=== PATIENT | male | born 1985 | race Caucasian/White ===

== ENCOUNTER 2018-01-13 21:37 | Emergency (ER) | payer OTHER ==
[~2018-01-13] VITALS: Ht 185.4 cm; Wt 68.0 kg
[~2018-01-13 21:37] MED LIST: ERYTHROMYCIN3.5 GM OD
[2018-01-14] MEDS ORDERED: ANUSOL-HC25 MG PR (01:26)
== END 2018-01-14 01:52 | disposition home or self-care (01) ==
LOC: ED 21:37
DX: K52.9 Noninfective gastroenteritis and colitis, unspecified (principal); F32.9 Major depressive disorder, single episode, unspecified; F17.200 Nicotine dependence, unspecified, uncomplicated
CPT/HCPCS: 74177; 80053; 81001; 83690; 85025; 87045; 87046; 87077; 87186; 87493; 96361; 96374; 96375; 96376; 99284; J2270; J2405; J7030; Q9967

== ENCOUNTER 2018-04-02 22:40 | Emergency (ER) | payer OTHER ==
[~2018-04-02] VITALS: Ht 185.4 cm; Wt 70.3 kg
[~2018-04-02 22:40] MED LIST changes: +ANUSOL-HC25 MG PR
[2018-04-03] MEDS ORDERED: PEPCID40 MG PO (00:45)
[2018-04-03] MEDS ORDERED: BENTYL10 MG/1 ML PO (00:45)
== END 2018-04-03 01:04 | disposition home or self-care (01) ==
LOC: ED 22:40
DX: K29.70 Gastritis, unspecified, without bleeding (principal); F17.200 Nicotine dependence, unspecified, uncomplicated
CPT/HCPCS: 99283

== ENCOUNTER 2019-05-19 17:33 | Emergency (ER) | payer OTHER ==
[~2019-05-19] VITALS: Ht 185.4 cm; Wt 72.6 kg
[~2019-05-19 17:33] MED LIST changes: +BENTYL10 MG/1 ML PO; +PEPCID40 MG PO
[2019-05-19] MEDS ORDERED: KEFLEX500 MG PO (20:24)
[2019-05-19] MEDS ORDERED: TRAMADOL HCL50 MG PO (20:24)
== END 2019-05-19 20:49 | disposition home or self-care (01) ==
LOC: ED 17:33
DX: K04.7 Periapical abscess without sinus (principal); F17.200 Nicotine dependence, unspecified, uncomplicated
CPT/HCPCS: 96372; 99282; J0696

== ENCOUNTER 2020-08-24 10:44 | Emergency (ER) | payer OTHER ==
[~2020-08-24] VITALS: Ht 185.4 cm; Wt 72.6 kg
[~2020-08-24 10:44] MED LIST changes: +KEFLEX500 MG PO; +TRAMADOL HCL50 MG PO
[2020-08-24] MEDS ORDERED: PENICILLIN V P500 MG PO (11:00)
== END 2020-08-24 11:10 | disposition home or self-care (01) ==
LOC: ED 10:44
DX: K04.7 Periapical abscess without sinus (principal); F17.200 Nicotine dependence, unspecified, uncomplicated
CPT/HCPCS: 99283

== ENCOUNTER 2022-06-10 12:09 | Emergency (ER) | payer OTHER ==
[~2022-06-10] VITALS: Ht 185.4 cm; Wt 76.0 kg
[~2022-06-10 12:09] MED LIST changes: +PENICILLIN V P500 MG PO; +ULTRAM50 MG PO
[2022-06-10] MEDS ORDERED: AMOX TR-K CLV1 EAC1 PO (13:03)
== END 2022-06-10 13:13 | disposition home or self-care (01) ==
LOC: ED 12:09
DX: K04.7 Periapical abscess without sinus (principal); F17.200 Nicotine dependence, unspecified, uncomplicated
CPT/HCPCS: 10160; 99282-25

== ENCOUNTER 2024-01-18 11:59 | Emergency (ER) | payer OTHER ==
[~2024-01-18] VITALS: Ht 185.4 cm; Wt 77.4 kg
[~2024-01-18 11:59] MED LIST changes: +AMOX TR-K CLV1 EAC1 PO; +COLACE100 MG PO; +HYDROCODON-ACE1 EA10 PO; +IBUPROFEN600 MG PO; +METAMUCIL PACK3.4 GM PO; +NITRO-BID1 INCH PR; +PERCOCET 5-3251 EACH PO; +TAMSULOSIN HCL0.4 MG PO
--- OUTSIDE RECORDS SUMMARY | 2024-01-18 12:02 | XMS ---
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 ELacey VISIT COUNT (12 MO.) [address] [place] [address] TOTAL 2 NOTE: Visits indicate total known visits. ED/UCC VISIT TRACKING (12 MO.) 01/18/2024 12:00 [facility] [place] TYPE: Emergency COMPLAINT: - POST OP HEMORROID ISSUES 01/13/2024 18:36 [facility] [place] TYPE: Emergency COMPLAINT: - POST OP ISSUES DIAGNOSES: - Nicotine dependence, unspecified, uncomplicated - Other acute postprocedural pain - Other terminal carman (current) drug therapy INPATIENT VISIT TRACKING (12 MO.) 01/09/2024 03:35 [facility] [place] TYPE: Observation COMPLAINT: - PROLAPSED INTERNAL HEMORROIDS DIAGNOSES: - Fourth degree hemorrhoids - Nicotine dependence, cigarettes, uncomplicated - Other snf (current) drug therapy [email or web address]
[2024-01-18 14:02] VITALS: BP 139/105
--- NOTE | 2024-01-19 10:52 | CONS ---
[facility] [address] [place], [place] [address] Signed DATE OF CONSULTATION: 01/18/2024 REQUESTING PHYSICIAN: Dr. Fitzgerald. ISSUE: Mucopurulent discharge at the perianal site following hemorrhoidectomy. HISTORY OF PRESENT ILLNESS: This 38-year-old white man lives in the [place] area. 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 He has been getting along well at home having no constipation or other problems. He has had no fever or chills. He presented to the emergency room because his noted a "pus" in the region of the perianal area. The patient denies any particular problems of pain or constipation or even diarrhea. He was evaluated by Dr. Fitzgerald in orienting emergency room physician and note was made of a mucopurulent discharge. PHYSICAL EXAMINATION: GENERAL: The patient looks completely well. In the lateral decubitus position anorectal examination was undertaken. Healing is progressing as exactly expected at this point. There is no sign of erythema or cellulitis of the perineum. The mucopurulent discharge is related to open hemorrhoidectomy. ASSESSMENT: The patient and others are reassured that this is normal at this stage of healing following extensive hemorrhoidectomy. Keeping the area clean as he is doing with sitz baths and so fourth is most appropriate course at this point. He was planning to see me in the office on January 20. I have asked him to re-establish an appointment toward the end of the month and he will call on Sunday to set that up. If he has problems in the meantime, I am happy to see him again. MD YAZ Grey/CESAR /[id number] Electronically Signed By: KATHERYN MULLINS MD 01/19/24 1052 PATIENT NAME: FREDDY PACE CONSULTATION DATE OF : 85 REPORT #: [id number] PHYSICIAN: KATHERYN MULLINS MD PCP: CARL DONALDSON PA-C REPORT IS CONFIDENTIAL AND NOT TO BE RELEASED WITHOUT AUTHORIZATION [address] [address] Signed cc: Arron Fitzgerald MD Copies: ARRON FITZGERALD MD ~ Electronically Signed By: KATHERYN MULLINS MD 01/19/24 1052 PATIENT NAME: FREDDY PACE CONSULTATION DATE OF : 85 REPORT #: [id number] PHYSICIAN: KATHERYN MULLINS MD PCP: CARL DONALDSON PA-C REPORT IS CONFIDENTIAL AND NOT TO BE RELEASED WITHOUT AUTHORIZATION
== END 2024-01-18 14:02 | disposition home or self-care (01) ==
LOC: ED 11:59
DX: Z48.815 Encounter for surgical aftercare following surgery on the digestive system (principal); Z87.19 Personal history of other diseases of the digestive system; F17.200 Nicotine dependence, unspecified, uncomplicated; Z79.899 Other long term (current) drug therapy
CPT/HCPCS: 99283

== ENCOUNTER 2025-06-24 17:21 | Emergency (ER) | payer OTHER ==
[~2025-06-24] VITALS: Ht 185.4 cm; Wt 72.0 kg
[2025-06-24] MEDS ORDERED: PENICILLIN V POTASSIUM 500 MG TAB PO ONE (19:15)
[2025-06-24] MEDS ORDERED: PENICILLIN V P500 MG PO (19:17)
[2025-06-24] MEDS ORDERED: TRAMADOL HCL50 MG PO (19:17)
[2025-06-24 19:38] VITALS: BP 134/70
== END 2025-06-24 19:39 | disposition home or self-care (01) ==
LOC: ED 17:21
DX: K08.89 Other specified disorders of teeth and supporting structures (principal); F17.200 Nicotine dependence, unspecified, uncomplicated
CPT/HCPCS: 99282

== ENCOUNTER 2025-06-25 23:49 | Emergency (ER) | payer OTHER ==
[~2025-06-25] VITALS: Ht 185.4 cm; Wt 70.0 kg
[~2025-06-25 23:49] MED LIST changes: +DEXAMETHASONE SOD PHOS 10 MG/ML VIAL IV ONE; +FAMOTIDINE 20 MG/ 2 ML VIAL IV ONE
--- OUTSIDE RECORDS SUMMARY | 2025-06-25 23:55 | XMS ---
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 ELacey VISIT COUNT (12 MO.) 2 [facility] TOTAL 2 NOTE: Visits indicate total known visits. ED/UCC VISIT TRACKING (12 MO.) 06/25/2025 23:[address] [facility] [place] TYPE: Emergency COMPLAINT: - THROAT/TONGUE SWELLING 06/24/2025 17:22 [facility] [place] TYPE: Emergency COMPLAINT: - MOUTH PROBLEM INPATIENT VISIT TRACKING (12 MO.) No inpatient visits to display in this time frame [email or web address]
[2025-06-26 00:27] LABS: BASOPHILS 0.2 % (0.2-1.2); EOSINOPHILS 0.2 % (0.8-7.0); LYMPHOCYTES 7.1 % (21.8-53.1); MCH 30.2 PG (25.7-32.2); MCHC 32.4 g/dL (32.3-36.5); MCV 93.3 fL (79.0-92.2); MONOCYTES 9.9 % (5.3-12.2); NEUTROPHILS 82.1 % (34.0-67.9); RBC 4.47 M/uL (4.63-6.08)
[2025-06-26 00:57] LABS: ALT (SGPT) 33.0 U/L (14-59); AST (SGOT) 22.0 U/L (15-37); GLOMERULAR FILTRATION RATE,EST 85.0 mL/min (>60); PROTEIN, TOTAL 7.6 g/dL (6.4-8.2); UREA NITROGEN 15.0 mg/dL (7-18)
[2025-06-26] MEDS ORDERED: AMP/SULBACTAM SOD 3 GM in SODIUM CHLORIDE 0.9% 100 ML IV ONE (01:15)
[2025-06-26] MEDS ORDERED: CLEOCIN HCL300 MG PO (01:16)
[2025-06-26] MEDS ORDERED: HYDROCODON-ACE1 EA10 PO (01:16)
[2025-06-26] MEDS ORDERED: methylPREDNISolone 4 MG HOME.PACK PO ONE (01:30)
[2025-06-26] MEDS ORDERED: HYDROCODONE BIT/ACETAMINOPHEN 5/325 MG 1 TAB HOME.PACK PO ONE (01:30)
[2025-06-26] MEDS ORDERED: DEXAMETHASONE SOD PHOS 4 MG/ML VIAL IV ONE (01:30)
[2025-06-26 02:13] VITALS: BP 117/73
== END 2025-06-26 02:17 | disposition home or self-care (01) ==
LOC: ED 23:49
PROVIDERS: Family Medicine
DX: J36 Peritonsillar abscess (principal); F17.200 Nicotine dependence, unspecified, uncomplicated; Z79.2 Long term (current) use of antibiotics
CPT/HCPCS: 36415; 70491; 80053; 85025; 96374; 96375; 99283-25; A9270; J1100; J1200; Q9967